=== PATIENT | male | born 1970 | race Caucasian/White ===

== ENCOUNTER → 2024-06-21 18:33 | Outpatient (REF) | payer OTHER, SELFPAY | LOC: MRI 3T 18:33 | PROVIDERS: ATTENDING PHYSICIAN Specialist; FAMILY PHYSICIAN Family Medicine | DX: R97.20 Elevated prostate specific antigen [PSA] (principal) | CPT/HCPCS: 72197; A9575 ==

== ENCOUNTER → 2024-06-24 11:28 | Outpatient (REF) | payer SELFPAY | LOC: REG 11:28 | PROVIDERS: ATTENDING PHYSICIAN Specialist; FAMILY PHYSICIAN Family Medicine | DX: Z22.322 Carrier or suspected carrier of Methicillin resistant Staphylococcus aureus (principal) | CPT/HCPCS: 36415; 87070 ==